=== PATIENT | male | born 1970 | race Caucasian/White ===

== ENCOUNTER 2020-04-10 06:10 | Emergency (ER) | payer SELFPAY ==
[2020-04-10 06:26] VITALS: TEMP 97.1
[2020-04-10] MEDS ORDERED: MORPHINE SULFATE INJ 10 MG/ML VIAL IV ONE (06:31)
[2020-04-10] MEDS ORDERED: ONDANSETRON INJ 4 MG/2 ML VIAL IV ONE (06:31)
--- NOTE | 2020-04-10 06:43 | ED.PDOC ---
History of Present Illness - General Source: patient Exam Limitations: no limitations - History of Present Illness Initial Comments: Pt presents to ED with several week h/o right flank pain that radiates to right abdomen. States the pain began while he was in [facility] in January. Denies fall, injury or trauma. Denies nausea, vomiting, diarrhea, fever, dysuria, hematuria. Has not taken anything for the pain tonight. The pain was keeping him from sleeping tonight so came to ED for evaluation. <Mike Cody - Last Filed: 04/10/20 06:40> <Kristal Jaeger - Last Filed: 04/10/20 08:34> - General Chief Complaint: Problem Stated Complaint: abd pain to right upper quad Time Seen by Provider: 04/10/20 06:25 - History of Present Illness Allergies/Adverse Reactions: Allergies NO KNOWN ALLERGY Allergy (Verified 04/10/20 06:33) Home Medications: Ambulatory Orders Cyclobenzaprine HCl [Flexeril] 5 mg PO TID PRN #21 tab 04/10/20 Review of Systems - Review of Systems Constitutional: Denies: chills, fever, weakness EENTM: Denies: nose congestion, throat pain Respiratory: Denies: cough, short of breath Cardiology: Denies: chest pain, palpitations, syncope Gastrointestinal/Abdominal: States: abdominal pain. Denies: diarrhea, nausea, vomiting Musculoskeletal: States: back pain Neurological: Denies: headache, paresthesia All other Systems: Reviewed and Negative <Mike Cody - Last Filed: 04/10/20 06:40> Past Medical History (General) - Patient Medical History Hx Seizures: No Hx Stroke: No Hx Dementia: No Hx Asthma: No Hx of COPD: No Hx Cardiac Disorders: No Hx Congestive Heart Failure: No Hx Pacemaker: No Hx Hypertension: No Hx Thyroid Disease: No Hx Diabetes: Yes Hx Gastroesophageal Reflux: No Hx Renal Disease: No Hx Cancer: No Hx of HIV: No Hx Hepatitis C: No Hx MRSA: No Surgical History: no surgical history - Vaccination History Hx Tetanus, Diphtheria Vaccination: Yes Hx Influenza Vaccination: Yes Hx Pneumococcal Vaccination: No Immunizations Up to Date: No - Social History Hx Tobacco Use: Yes Hx Chewing Tobacco Use: No Hx Alcohol Use: No Hx Substance Use: No Hx Substance Use Treatment: No Hx Depression: No Feels Threatened In Home Enviroment: No Feels Threatened In a Relationship: No Hx Physical Abuse: No Hx Emotional Abuse: No Hx Suspected Abuse: No - Activities of Daily Living Hospice Agency (if applicable):: None - Female History Patient is a Female of Child Bearing Age (10 -59 yrs old): No <Mike Cody - Last Filed: 04/10/20 06:40> Family Medical History - Family History Mother Family History: No Known <Mike Cody - Last Filed: 04/10/20 06:40> Physical Exam - Physical Exam General Appearance: Alert, No apparent distress Neck: non-tender, full range of motion, supple Respiratory: chest non-tender, lungs clear, normal breath sounds, no respiratory distress Cardiovascular/Chest: regular rate, rhythm, no murmur Gastrointestinal/Abdominal: non tender, soft, no pulsatile mass Back Exam: no CVA tenderness, no vertebral tenderness Extremity: normal range of motion, non-tender Skin Exam: normal color <Escobar,Mike Maharaj - Last Filed: 04/10/20 06:40> Progress - Progress Progress: 04/10/20 06:43 Prior to completed results, care transferred to Dr. Jaeger after detailed discussion. Mike Cody <EscobarMike cavazos - Last Filed: 04/10/20 06:40> - Results/Orders Results/Orders: Assumed care from Dr. Cody, right flank pain for 3-4 months. Not associated with n/v/d/constipation. Denies any known injury. no fever, dysuria, hematuria. Hx of Dm. Attempted motrin for pain. Exam: VSS, HR RRR, Lungs CTAB. no cva tenderness, no rebound or guarding. psoriasis rash appreciated, no rash on back. no midline tenderness. CT abd/pelvis unremarkable for acute pathology. Fatty liver disease. Patient received morphine and zofran for pain from previous physician. States it minimally helped. Will give dose a toradol. Takes metformin 1000mg bid for diabetes, glucose at home runs from 117-250. States his diet is not consistent due to moving, sometimes forgets his medications. The data reviewed when caring for this patient included: nurse notes etc. The history and assessments from nurses notes were reviewed and considered, and the patient's home medication list was also reviewed and considered. My assessment and the results of testing completed here in the ED were discussed with the patient. All questions were answered, and he express understanding of my assessment and the plan. He has been instructed to return if their symptoms wors en, and have been asked to follow up with their primary care physician to recheck today's presenting complaint. return precautions given. We will try a course of muscle relaxer to see if this helps with pain. patient instructed not to drive or operate heavy machinery while on this medication, I have reviewed medication, benefits, alternatives and side effects. Patient decided to proceed with medication.VSS, patient discharged home in stable condition. Kristal Jaeger DO #[id number] <Kristal Jaeger - Last Filed: 04/10/20 08:34> Departure <Mike Cody - Last Filed: 04/10/20 06:40> - Departure Time of Disposition: 08:00 Diet: diabetic diet <Kristal Jaeger - Last Filed: 04/10/20 08:34> - Departure Clinical Impression: Fatty liver Abdominal pain Qualifiers: Abdominal location: unspecified location Qualified Code(s): R10.9 - Unspecified abdominal pain Back pain Qualifiers: Back pain location: back pain in unspecified location Chronicity: chronic Back pain laterality: right Qualified Code(s): M54.9 - Dorsalgia, unspecified; G89.29 - Other chronic pain Disposition: Discharge to Home or Self Care Condition: Good Departure Forms: ED Discharge - Pt. Copy, Patient Portal Self Enrollment Instructions: Nonalcoholic Fatty Liver Disease (DC), Back Exercises Prescriptions: Cyclobenzaprine HCl [Flexeril] 5 mg PO TID PRN #21 tab PRN Reason: Muscle Spasms Home Medications: Ambulatory Orders Cyclobenzaprine HCl [Flexeril] 5 mg PO TID PRN #21 tab 04/10/20
--- NOTE | 2020-04-10 07:10 | CT ---
EXAM: CT abdomen and pelvis without intravenous contrast CLINICAL DATA: 50-year-old male with right flank pain and right abdominal pain TECHNICAL DATA: Axial CT imaging of the abdomen and pelvis was performed without oral or intravenous contrast. Sagittal and coronal reconstructed images were then performed. The CT study is performed according to ALARA (as low as reasonably achievable) or ALARA/IMAGE GENTLY, with automatic adjustment of mA and/or kV according to patient size. Performed on: 04/10/2020 at 6:48 AM Comparison: None. FINDINGS: Lung bases: The lung bases are clear. Liver: The liver is enlarged and measures 21 cm in craniocaudal dimension. No focal hepatic abnormalities are appreciated on this unenhanced scan. There is decreased attenuation of the liver commonly due to fatty infiltration. Spleen:The spleen is normal is size, configuration and attenuation. No focal splenic abnormalities are appreciated on this unenhanced scan. Gallbladder and bile duct: The gallbladder is well distended and unremarkable. There is no biliary ductal dilatation. Pancreas: The pancreas is grossly normal in size and configuration. Adrenal Glands:The adrenal glands are normal in size and configuration. Kidneys:The kidneys are normal in size and configuration. There is no evidence of hydronephrosis. There is a punctate nonobstructing calcification in the upper pole of the right kidney. No focal renal abnormalities are identified. Stomach:The stomach is grossly normal. There is no definite hiatal hernia. Bowel:The bowel gas pattern is non specific and non obstructive. Appendix: The appendix is normal. Free air:There is no evidence of free air. Free fluid: There is no evidence of free fluid. Vasculature: The aorta is normal in caliber and contour. The inferior vena cava is grossly unremarkable. Lymphadenopathy: No pathologic lymphadenopathy is identified. Bladder: The bladder is well distended and smooth in contour. Reproductive: The prostate gland is grossly within normal limits. Bones: No acute osseous abnormalities are identified. Soft tissues: No focal soft tissue abnormalities are identified. IMPRESSION: 1. No evidence of acute intra-abdominal or intrapelvic pathology. 2. Punctate nonobstructing calcification in the upper pole of the right kidney. There is no evidence of urinary tract obstruction. 3. No evidence of acute gallbladder pathology or acute appendicitis. 4. Hepatomegaly and fatty infiltration of the liver. Electronically signed by: Candy Olivo DO 04/10/2020 7:08 AM CDT
[2020-04-10] MEDS ORDERED: KETOROLAC TROMETHAMINE INJ 30 MG/ML VIAL IV ONE (07:35)
[2020-04-10 08:37] VITALS: BP 150/97; O2SAT 98
== END 2020-04-10 08:35 | disposition home or self-care (01) ==
LOC: ER 06:10
DX: R10.9 Unspecified abdominal pain (principal); K76.0 Fatty (change of) liver, not elsewhere classified; M54.9 Dorsalgia, unspecified; G89.29 Other chronic pain; E11.9 Type 2 diabetes mellitus without complications; Z87.891 Personal history of nicotine dependence
CPT/HCPCS: 36415; 74176; 80053; 81001; 83690; 85025; J1885; J2270; J2405